=== PATIENT | female | born 1950 | race Two or more races ===

== ENCOUNTER 2024-01-15 11:57 | Emergency (ER) | payer OTHER ==
[~2024-01-15] VITALS: Ht 121.9 cm; Wt 69.9 kg
== END 2024-01-15 14:04 | disposition home or self-care (01) ==
LOC: ER 11:57
DX: R42 Dizziness and giddiness (principal); H60.8X9 Other otitis externa, unspecified ear

== ENCOUNTER 2024-12-05 17:09 | Emergency (ER) | payer OTHER ==
[~2024-12-05] VITALS: Ht 144.8 cm; Wt 68.0 kg
[2024-12-05] MEDS ORDERED: LACTOBACILLUS ACIDOPHILUS 1 CAP CAP PO ONE ×2 (18:43→18:45)
[2024-12-05] MEDS ORDERED: FAMOTIDINE/PF 20 MG/2 ML VIAL ONE (18:43)
[2024-12-05] MEDS ORDERED: FAMOTIDINE/PF 20 MG/2 ML VIAL IV ONE (18:45)
[2024-12-05] MEDS ORDERED: INTESTINEX680 M1 PO (19:20)
[2024-12-05] MEDS ORDERED: PEPCID20 MG PO (19:20)
== END 2024-12-05 19:39 | disposition home or self-care (01) ==
LOC: ER 17:09
DX: R53.81 Other malaise (principal); A05.9 Bacterial foodborne intoxication, unspecified; I10 Essential (primary) hypertension
CPT/HCPCS: 96365; 99282; J3490